=== PATIENT | male | born 1990 ===

== ENCOUNTER 2021-07-26 10:52 | Emergency (ER) | payer OTHER ==
[2021-07-26 12:14] LABS: BASOPHIL 0.2 % (0-2); EOSINOPHIL 0.2 % (0-5); HCT 41.9 % (42.0-52.0); HGB 14.1 g/dl (13.2-18.0); LYMPHOCYTE 17.6 % (15-48); MCHC 33.7 g/dL (32.0-36.0); MONOCYTE 6.1 % (0-12); MPV 11.4 fL (6.0-9.5); NEUTROPHIL 74.9 % (41-80); NRBC 0; PLT 148 K/uL (150-400); RBC 4.41 M/uL (4.70-6.00); RDW 13.1 % (11.5-14.0); WBC 5.1 K/uL (4.0-10.5)
[2021-07-26 12:29] LABS: ALBUMIN 3.5 g/dL (3.4-5.0); BILIRUBIN - TOTAL 0.5 mg/dL (0.2-1.0); BUN/CREAT RATIO (CALC) 8.8 RATIO; CREATININE 0.91 mg/dL (0.67-1.17); GLOBULIN (CALCULATION) 3.6 g/dL; POTASSIUM 4.3 mmol/L (3.5-5.1); TOTAL PROTEIN 7.1 g/dL (6.4-8.2)
== END 2021-07-26 13:58 | disposition home or self-care (01) ==
LOC: FER 10:52 → EDBD 10:52 → FER 13:58
PROVIDERS: Emergency Medicine
DX: U07.1 COVID-19 (principal)
CPT/HCPCS: 36415; 71046; 80053; 85025; J7030; U0002